=== PATIENT | female | born 1980 | race Caucasian/White ===

== ENCOUNTER 2017-10-30 10:00 | Outpatient (CLI) | payer BC | END 2017-10-30 10:01 | disposition home or self-care (01) | LOC: BICRAD 10:00 | PROVIDERS: ATTEND Family Medicine | DX: M25.562 Pain in left knee (principal); M17.12 Unilateral primary osteoarthritis, left knee ==

== ENCOUNTER 2018-05-06 09:57 | Outpatient (CLI) | payer BC ==
--- NOTE | 2018-05-06 12:27 | MRI ---
MRI LUMBAR SPINE WITHOUT CONTRAST: HISTORY: Chronic low back pain. Symptoms of progression. COMPARISON: None. TECHNIQUE: MRI lumbar spine is performed without intravenous Gadolinium administration. Multisequent ial, multiplanar imaging is performed. FINDINGS: An appropriate T1 marrow signal intensity of the lumbar vertebrae. Vertebral body height is maintain ed. There is no fracture. No significant STIR hyperintensity to suggest edema or ligamentous injury . There are type II Modic changes at L5-S1. Symmetric signal intensity of the psoas muscles. Upper signal intensity of visualized solid organs. Conus medullaris terminates at the upper aspect of L1. T11-T12: Mild ligamentum flavum thickening and facet hypertrophy on the left. No significant centra l canal stenosis. There is mild loss of disk space height with a small component of disk material in the right neural foramen. Disk material abuts but does not obscure the foraminal right T12 nerve ro ot. T12-L1: Adequate disk hydration. No significant central canal stenosis or foraminal narrowing. L1-L2: Adequate disk hydration. Minimal left paracentral disk bulge. No significant central canal stenosis. Neural foramen are patent bilaterally. L2-L3: Adequate disk hydration. No significant posterior disk abnormality. Mild ligamentum flavum thickening and facet hypertrophy. No significant central canal stenosis. Neural foramen are patent bilaterally. L3-L4: Desiccation with mild loss of disk space height. Generalized disk bulge, ligamentum flavum t hickening, and facet hypertrophy result in mild central canal stenosis. Neural foramen are patent bi laterally. L4-L5: Desiccation with mild loss of disk space height. There is a generalized disk bulge with left subarticular disk protrusion. There is mild stenosis of the thecal sac. Disk material abuts and pa rtially obscures the traversing left L5 nerve root. Neural foramina are mildly narrowed bilaterally. L5-S1: Desiccation with moderate loss of disk space height. Generalized disk bulge abuts the ventra l thecal sac without significant central canal stenosis. Minimal encroachment upon both subarticular zones without mass effect upon either traversing S1 nerve root. Moderate bilateral foraminal narrow ing. IMPRESSION: 1. Type II Modic changes at L5-S1. 2. Left subarticular disk protrusion at L4-L5 with partial obscuration of the traversing left L5 ner ve root. 3. Degenerative changes at T11-T12. There is no high-grade central canal stenosis. However, there is disk material entering the right neural foramen with mass effect on the foraminal right T11 nerve root. This results in mild stenosis. There is mild loss of disk space height at T11-T12 without si gnificant stenosis of the thecal sac. POS: ANDRÉS
== END 2018-05-06 09:58 | disposition home or self-care (01) ==
LOC: SCSMRI 09:57
PROVIDERS: ATTEND Specialist
DX: M51.16 Intervertebral disc disorders with radiculopathy, lumbar region (principal); M47.897 Other spondylosis, lumbosacral region; M47.894 Other spondylosis, thoracic region; M48.04 Spinal stenosis, thoracic region
CPT/HCPCS: 72148

== ENCOUNTER 2018-11-18 09:49 | Outpatient (CLI) | payer BC ==
--- NOTE | 2018-11-18 10:50 | RAD ---
CERVICAL SPINE SERIES 3 VIEWS WITH FLEXION AND EXTENSION: HISTORY: Neck pain. FINDINGS: Vertebral bodies are normal in height. Degenerative osteophytes are seen at C3-4 and C5-6 without si gnificant disk narrowing. No abnormal motion on the flexion or extension views. IMPRESSION: Mild arthritic changes of the spine. POS: [facility]
--- NOTE | 2018-11-18 11:41 | MRI ---
Noncontrast enhanced MRI images thoracic spine. HISTORY: Back pain and radiculopathy. Multiplanar multisequence noncontrast enhanced MRI images thoracic spine demonstrate Schmorl's nodes at the T6-7, T7-8, T8-9, T9-10 and lesser degrees at T10-11 and T11-12. These all appear to be chronic with no evidence of acute marrow signal changes. The vertebral bodies are otherwise unremarkable. The central canal is patent. The spinal cord is unre markable. There is a right-sided T11-12 disc protrusion extending into the right neural foramen at T10-11 abutt ing the exiting right T11 nerve root. IMPRESSION: 1: Mid and lower thoracic spine Schmorl's nodes. 2: Right T11-12 foraminal and far lateral disc protrusion. This abuts the right T11 nerve root.
== END 2018-11-18 09:50 | disposition home or self-care (01) ==
LOC: SCSMRI 09:49
PROVIDERS: ATTEND Nurse Practitioner Family
DX: M47.22 Other spondylosis with radiculopathy, cervical region (principal); M51.14 Intervertebral disc disorders with radiculopathy, thoracic region
CPT/HCPCS: 72040; 72146

== ENCOUNTER 2023-01-07 10:29 | Outpatient (CLI) | payer BC | END 2023-01-07 10:30 | disposition home or self-care (01) | LOC: BICULT 10:29 | PROVIDERS: ATTEND Psychiatry & Neurology Neurology | DX: R42 Dizziness and giddiness (principal) | CPT/HCPCS: 93880 ==